=== PATIENT | female | born 2005 ===

== ENCOUNTER 2024-11-19 19:00 | Inpatient (IN) | payer MEDICAID, OTHER, SELFPAY ==
[2024-11-19 20:01] VITALS: BMI 30.4
[2024-11-19 22:09] LABS: Glucose 74 mg/dL (70-105)
[2024-11-19 22:11] LABS: #Basophils 0.04 10x3/uL (0.0-0.2); #Eosinophils 0.07 10x3/uL (0.0-0.5); #Monocytes 1.04 10x3/uL (0.0-1.1); #Neutrophils 7.31 10x3/uL (1.5-8.4); %Basophils 0.3 % (0.0-2.0); %Eosinophils 0.6 % (0.0-6.0); %Lymphocytes 27.2 % (18.0-47.0); %Monocytes 8.8 % (0.0-10.0); %Neutrophils 61.7 % (40.0-75.0); Hematocrit 36.9 % (34.9-44.5); Hemoglobin 12.5 g/dL (12.0-15.5); Mean Corpuscular Hemoglobin 29.3 pg (27.0-33.0); Mean Corpuscular Volume 86.6 fL (81.6-98.3); Platelet Count 206 10x3/uL (150-450); Red Blood Cell (RBC) Count 4.26 10x6/uL (3.90-5.03); White Blood Cell (WBC) Count 11.85 10x3/uL (3.5-10.5)
[2024-11-19 22:34] LABS: Hep B Surf Ag - L&D Non-Reactive S/CO (NonReactive)
[2024-11-19 22:35] LABS: Syphilis Antibody Index 0.04 S/CO (<1.00 Non-Reactive)
[2024-11-19] MEDS ORDERED: Oxytocin 30 units/NS 500 ML 500 ML IV SCH (23:45)
[2024-11-19] MEDS ORDERED: Tranexamic Acid 1,000 MG/10 ML VIAL IVP PRN (23:50)
[2024-11-19] MEDS ORDERED: Diphenoxylate HCl/Atropine Tablet PO PRN (23:50)
[2024-11-19] MEDS ORDERED: Methylergonovine 0.2 MG/ML VIAL IM PRN (23:50)
[2024-11-19] MEDS ORDERED: hydrALAZINE 20 MG/ML VIAL SLOW IVP PRN (23:50)
[2024-11-19] MEDS ORDERED: Ondansetron PF 4 MG/2 ML Vial IVP PRN (23:50)
[2024-11-19] MEDS ORDERED: Carboprost 250 MCG/ML AMP IM PRN (23:50)
[2024-11-19] MEDS ORDERED: HYDROcodone/Acetaminophen 5/325 mg Tablet PO PRN (23:50)
[2024-11-19] MEDS ORDERED: Lidocaine 1% (PF) 30 ML VIAL SC PRN (23:50)
[2024-11-20] MEDS: fentaNYL/Ropivacaine Epidural 100 ML ONE (02:02)
[2024-11-20] MEDS ORDERED: Ondansetron PF 4 MG/2 ML Vial IVP PRN ×2 (02:08→08:30)
[2024-11-20] MEDS ORDERED: Acetaminophen 325 MG TAB PO PRN (02:08)
[2024-11-20] MEDS ORDERED: diphenhydrAMINE 50 MG/ML VIAL IVP PRN (02:08)
[2024-11-20] MEDS ORDERED: fentaNYL 2 mcg/Ropivacaine 0.2% Epidural 100 ML CADD EPIDURAL SCH (02:15)
[2024-11-20] MEDS ORDERED: Communication Order-Pharmacy FS SCH (02:15)
[2024-11-20] MEDS: Oxytocin 30 units/NS 500 ML 500 ML IV SCH (03:53)
[2024-11-20] MEDS: Ibuprofen 800 MG TAB PO PRN (04:06)
[2024-11-20] MEDS: Acetaminophen 500 MG TAB PO PRN (04:06)
[2024-11-20] MEDS ORDERED: Bupivacaine 0.25% HCL 30 ML VIAL ONE (08:00)
[2024-11-20] MEDS ORDERED: diphenhydrAMINE 25 MG CAP PO PRN (08:30)
[2024-11-20] MEDS ORDERED: hydrALAZINE 20 MG/ML VIAL SLOW IVP PRN (08:30)
[2024-11-20] MEDS ORDERED: Milk Of Magnesia 30 ML UDCUP PO PRN (08:30)
[2024-11-20] MEDS ORDERED: Bisacodyl 10 MG SUPP PR PRN (08:30)
[2024-11-20] MEDS ORDERED: Lanolin Ointment 7 GM TUBE TOP PRN (08:30)
[2024-11-20] MEDS ORDERED: Benzocaine-Menthol 82.5 ML CAN TOP PRN (08:30)
[2024-11-20] MEDS ORDERED: HYDROcodone/Acetaminophen 5/325 mg Tablet PO PRN (08:30)
[2024-11-20] MEDS: Ferrous Sulfate 325 MG TAB PO SCH (12:22)
[2024-11-20] MEDS: Ibuprofen 800 MG TAB PO SCH (14:00)
[2024-11-21] MEDS: Ferrous Sulfate 325 MG TAB PO SCH (07:53)
[2024-11-21] MEDS: Boostrix 0.5 ML (Tdap) VIAL (>/=7 yrs of age) IM ONE (07:53)
[2024-11-21 09:02] VITALS: BP 113/73; TEMP 98.2
== END 2024-11-21 14:50 | disposition home or self-care (01) | DRG 807 ==
LOC: CSHLD 19:41 → CSHPED 11-20 08:13
PROVIDERS: ADMIT Family Medicine; ATTEND Family Medicine
PROC: 10E0XZZ Delivery of Products of Conception, External Approach (ICD-10-PCS; principal; 2024-11-20)
DX: O24.420 Gestational diabetes mellitus in childbirth, diet controlled (principal); Z37.0 Single live birth; Z3A.39 39 weeks gestation of pregnancy
CPT/HCPCS: 36415; 36416; 51702; 82947; 85025; 86780; 86850; 86900; 86901; 87340; J0665; J2590; J7120